=== PATIENT | male | born 1955 | race Hispanic/Latino ===

== ENCOUNTER 2018-04-19 10:19 | Emergency (ER) | payer MEDICARE ==
[2018-04-19] MEDS ORDERED: Ketorolac Tromethamine 30 MG/ML VIAL ONE (11:01)
--- NOTE | 2018-04-19 12:47 | RAD ---
RIGHT SHOULDER 3 VIEWS: History Right shoulder pain. FINDINGS: There is an old healed fracture of the right clavicle. Degenerative changes are seen in the acromioc lavicular joint. No acute fracture, dislocation, or bone destruction is identified. POS: [facility]
== END 2018-04-19 11:21 | disposition home or self-care (01) ==
LOC: ERS 10:19
DX: M25.511 Pain in right shoulder (principal); I10 Essential (primary) hypertension; F17.210 Nicotine dependence, cigarettes, uncomplicated; Z79.899 Other long term (current) drug therapy
CPT/HCPCS: 96374; J1885

== ENCOUNTER 2018-06-19 07:30 | Outpatient (CLI) | payer MEDICARE ==
--- NOTE | 2018-06-19 11:59 | MRI ---
MRI OF RIGHT SHOULDER PERFORMED WITHOUT CONTRAST ENHANCEMENT: History: Fell about three weeks ago with shoulder pain. FINDINGS: There is a massive rotator cuff tear involving basically the entirety of the supra and infraspinatus tendon. Tendons are retracted by approximately 4.4 cm. The AP dimension of the tear is greater than 4 cm. Associated with this are fairly pronounced edema changes of the infra and supraspinatus muscles suggesting some associated muscle strain. The subscapularis muscle and tendon appear intact. The deepthi ps tendon is normal in position within the bicipital groove. Intraarticular portion of the biceps ten don is difficult to assess. It appears tendinopathic and possibly has a split tear. There are arthritic changes of the glenohumeral joint. Some irregularity to the posterior superior la jordin, probably related to degenerative type tear. There is mild atrophy of the supraspinatus muscle, slightly more pronounced atrophy of the infraspina tus. Humeral head abuts the undersurface of the acromion. There are AC joint hypertrophic changes. Inferior glenohumeral ligament is intact. IMPRESSION: Massive rotator cuff tear involving the supra and infraspinous tendons, fairly pronounced edema horton es seen within the muscle belly of the supra and infraspinatus muscles with mild atrophy of the supra and mild to moderate atrophy of the infraspinatus muscle. POS: [facility]
== END 2018-06-19 07:31 | disposition home or self-care (01) ==
LOC: MRI 07:30
PROVIDERS: ATTEND Orthopaedic Surgery
DX: M75.101 Unspecified rotator cuff tear or rupture of right shoulder, not specified as traumatic (principal); M62.511 Muscle wasting and atrophy, not elsewhere classified, right shoulder

== ENCOUNTER 2018-07-15 13:15 | Inpatient (IN) | payer MEDICARE ==
[2018-08-21] MEDS ORDERED: CEFAZOLIN 2 GM/50 ML BAG ONE (06:14)
[2018-08-21] MEDS ORDERED: Tranexamic Acid 1,000 MG/10 ML VIAL ONE (06:15)
[2018-08-21] MEDS ORDERED: Fentanyl 100 MCG/2 ML VIAL ONE (06:17)
[2018-08-21] MEDS ORDERED: Midazolam HCl 2 mg/2 ml Vial ONE (06:17)
[2018-08-21] MEDS ORDERED: Sodium Chloride 0.9% 100 ML ONE (06:33)
[2018-08-21 06:41] LABS: #Eosinphils 0.2 thou/uL (0.0-0.7); #Lymphocytes 1.3 thou/uL (1.20-3.40); #Monocytes 0.7 thou/uL (0.11-0.59); #Neutrophils 3.2 thou/uL (1.40-6.50); %Basophils 0.6 % (0.0-1.0); %Eosinophils 3.4 % (0.0-10.0); %Lymphocytes 23.3 % (21.0-51.0); %Monocytes 12.7 % (0.0-10.0); %Neutrophils 59.9 % (42.0-75.0); Hemoglobin 13.9 g/dL (14.0-18.0); Mean Corpuscular HGB CONC 33.3 g/dL (32.0-36.0); Mean Corpuscular Hemoglobin 31.2 pg (27.0-31.0); Mean Corpuscular Volume 93.7 fL (78.0-98.0); Mean Platelet Volume 7.5 fL (7.4-10.4); Platelet Count 279 thou/uL (130-400); Red Blood Cell (RBC) Count 4.47 mill/uL (4.70-6.10); White Blood Cell (WBC) Count 5.4 thou/uL (4.8-10.8)
[2018-08-21 06:51] LABS: Anion Gap 13 mmol/L (10-20); BUN (Urea Nitrogen) 11 mg/dL (8.4-25.7); Calc. Creatinine Clearance 0 mL/min (70-130); Calcium 9.1 mg/dL (7.8-10.44); Carbon Dioxide 25 mmol/L (23-31); Chloride 103 mmol/L (98-107); Estimated GFR-MDRD Greater than 90; Glucose 94 mg/dL (80-115); Potassium 4.1 mmol/L (3.5-5.1); Sodium 137 mmol/L (136-145)
[2018-08-21] MEDS ORDERED: HYDROcodone/Acetaminophen 10/325 mg Tablet PO PRN ×4 (06:53→07:57)
[2018-08-21] MEDS ORDERED: traMADol HCl 50 MG TAB PO PRN ×3 (06:53→07:57)
[2018-08-21] MEDS ORDERED: Ondansetron PF 4 MG/2 ML Vial IVP PRN (07:57)
[2018-08-21] MEDS ORDERED: Ropivacaine 0.2% 550 ML 550 ML NERVE BLCK SCH (07:57)
[2018-08-21] MEDS ORDERED: Promethazine HCl 25 MG/ML VIAL IM PRN ×2 (07:57→08:01)
[2018-08-21] MEDS ORDERED: Fentanyl 100 MCG/2 ML VIAL IV PRN (07:57)
[2018-08-21] MEDS ORDERED: Zolpidem Tartrate 5 MG TAB PO PRN (07:57)
[2018-08-21] MEDS ORDERED: Ondansetron HCl/PF 4 MG/2 ML Vial IVP PRN (08:01)
[2018-08-21] MEDS ORDERED: Promethazine HCl 25 MG/ML VIAL SLOW IVP PRN (08:01)
--- NOTE | 2018-08-21 08:25 | RAD ---
CHEST 2 VIEWS: HISTORY: Preoperative exam. COMPARISON: None. FINDINGS: Normal cardiac silhouette. Pulmonary vessels and hilum are normal. Costophrenic angles are clear. Hyperinflation with presumed chronic interstitial changes. No consolidation or mass. No pneumothora x. Old bilateral rib fractures are noted. Old distal left clavicle fractures noted. IMPRESSION: No acute cardiopulmonary process. POS: [facility]
[2018-08-21 12:44] VITALS: BMI 28.1
[2018-08-21] MEDS: Dextrose 5 %-0.45 % NaCl 1,000 ML IV SCH ×2 (13:47→22:49)
[2018-08-21] MEDS: Lisinopril 20 MG TAB PO SCH (14:53)
[2018-08-21] MEDS: CEFAZOLIN 2 GM/50 ML BAG IVPB SCH ×2 (15:31→22:10)
[2018-08-21] MEDS: Ketorolac Tromethamine 30 MG/ML VIAL IVP PRN (18:28)
--- NOTE | 2018-08-21 19:52 | OP ---
DATE OF PROCEDURE: 08/21/2018 PREOPERATIVE DIAGNOSIS: Rotator cuff arthropathy, right shoulder. POSTOPERATIVE DIAGNOSIS: Rotator cuff arthropathy, right shoulder. PROCEDURE PERFORMED: Right reverse total shoulder arthroplasty and biceps tenodesis. ASSISTANTS: Storm Aguero PA-C BLOOD LOSS: 200. SPECIMEN: None. DRAINS: None. COMPLICATION: None. IMPLANTS USED: [employer] 28 flex stem size 4 with a low offset metaphysis 6 mm poly standard base plate. NARRATIVE REPORT: After appropriate consent was obtained, the patient was taken to the operating room where general anesthesia was induced. The patient was placed in a beach chair position. Right arm was prepped and draped in the usual sterile fashion. Oblique incision was made in the deltopectoral interval. Cephalic vein was identified and preserved. Dissection was carried down to the conjoint tendon which was retracted medially. The subscapularis was taken down. The biceps tendon was in poor condition. It was taken down off the superior glenoid tubercle and tenodesed to the pectoralis tendon. Excess tendon was removed. The shoulder was then easily dislocated. I opened the humerus with a T handle and then cut a 20 mm retroversion superior cut. The subscapularis had been previously tagged. I used a subscapularis to follow this down to the anterior glenoid and a [employer] retractor was placed anteriorly, and drill was placed posteriorly. I drilled a center hole in the glenoid and reamed with a 1-step reamer. Irrigation was performed. The base plate was deployed without difficulty. Screws were inserted in the usual technique with good compression and fixation. Glenosphere was deployed without difficulty and the screw was tightened. Attention was turned back to the humerus which was opened with a T handle, and after using the acetabular reamer, I then also used a metaphyseal reamer. The appropriate size stem was trialed and polyethylene was trialed until the implants were determined as above. I did drill holes through the humerus, and a cottony Dacron suture was placed around the prosthesis through bone to facilitate repair of the subscapularis. Irrigation was performed. Permanent implants were placed. Shoulder was reduced. The subscapularis was repaired back to bone using the cottony Dacron suture. Irrigation performed again. The deltopectoral interval was tacked shut with 0 Vicryl, subcutaneous tissue was closed with 2-0 Vicryl, skin was closed with mamie, and sterile dressing was applied. Job ID: [id number]
[2018-08-22] MEDS: Ketorolac Tromethamine 30 MG/ML VIAL IVP PRN (03:50)
[2018-08-22 07:32] VITALS: BP 116/64; TEMP 98.8
[2018-08-22] MEDS: Lisinopril 20 MG TAB PO SCH (08:52)
[2018-08-22] MEDS ORDERED: Enoxaparin Sodium 30 MG/0.3 ML SYRINGE SC SCH (09:00)
== END 2018-08-22 10:40 | disposition home or self-care (01) | DRG 483 ==
LOC: SURG A 08-21 05:36
PROVIDERS: ADMIT Orthopaedic Surgery; ATTEND Orthopaedic Surgery
PROC: 0RRJ00Z Replacement of Right Shoulder Joint with Reverse Ball and Socket Synthetic Substitute, Open Approach (ICD-10-PCS; principal; 2018-08-21)
PROC: 0LS30ZZ Reposition Right Upper Arm Tendon, Open Approach (ICD-10-PCS; 2018-08-21)
DX: M12.811 Other specific arthropathies, not elsewhere classified, right shoulder (principal)
CPT/HCPCS: 36415; 71046; 80048; 85025; 93005; 93010; A4306; G8978-GP-CJ; G8979-GP-CI; J1650; J1885; J2250; J2405; J2795; J3010; J3370; J7050